=== PATIENT | female | born 1955 | race Caucasian/White ===

== ENCOUNTER 2018-10-23 14:45 | Inpatient (IN) | payer MEDICARE ==
[2018-10-23 15:50] LABS: HEMATOCRIT 43.7 % (41.0-60); HEMOGLOBIN 14.8 gm/dL (12-16); MEAN CELL VOLUME 89.1 fl (81-100); MEAN CORPUSCULAR HEMOGLOBIN 30.2 pg (27.0-31.0); MEAN CORPUSCULAR HGB CONC 33.9 pg (28.0-36.0); MEAN PLATELET VOLUME 7.7 fl; PLATELET COUNT 219 Th/cmm (150-400); RED BLOOD COUNT 4.91 Mil/cmm (3.80-5.10); RED CELL DISTRIBUTION WIDTH 12.5 % (11.5-20.0)
--- NOTE | 2018-10-23 15:58 | ED Physician Chart ---
ED Chief Complaint/HPI - Patient Information Date Seen:: 10/23/18 Time Seen:: 15:20 Chief Complaint:: failure to thrive History of Present Illness:: THIS IS A 63 YO FEMALE FROM A BOARD AND CARE FOR AN EVALUATION AND TREATMENT FOR HER CONDITION. SHE HEART DISEASE, HYPERTENSION AND NO DIABETES. SHE ADMITS TO HAVING MENTAL PROBLEMS. THIS PATIENT WAS JUST RELEASED FROM [facility] THIS AM. Allergies:: Allergies Allergy/AdvReac Type Severity Reaction Status Date / Time No Known Allergies Allergy Verified 10/23/18 15:16 Vitals:: Vital Signs - 8 hr 10/23/18 15:16 Temp 98.9 F HR 68 RR 18 BP 135/77 O2 Sat % 98 Historian:: Patient, Medical Records Review:: Nurse's Note Reviewed, Transfer documents Reviewed ED Review of Systems - Review of Systems General/Constitutional: No fever, No chills, No weight loss, Weakness, No diaphoresis, No edema, No loss of appetite Skin: No skin lesions, No rash, No bruising Head: No headache, No light-headedness Eyes: No loss of vision, No pain, No diplopia ENT: No earache, No nasal drainage, No sore throat, No tinnitus Neck: No neck pain, No swelling, No thyromegaly, No stiffness, No mass noted Cardio Vascular: No chest pain, No palpitations, No PND, No orthopnea, No edema Pulmonary: No SOB, No cough, No sputum, No wheezing GI: No nausea, No vomiting, No diarrhea, No pain, No melena, No hematochezia, No constipation, No hematemesis G/U: No dysuria, No frequency, No hematuria Musculoskeletal: No bone or joint pain, No back pain, No muscle pain Endocrine: No polyuria, No polydipsia Psychiatric: Prior psych history, No depression, No anxiety, No suicidal ideation Hematopoietic: No bruising, No lymphadenopathy Allergic/Immuno: No urticaria, No angioedema Neurological: No syncope, No focal symptoms, No weakness, No paresthesia, No headache, No seizure, No dizziness, No confusion, No vertigo ED Past Medical History - Past Medical History Obtainable: Yes Past Medical History: Dementia Family History: None Social History: Smoker, No Alcohol, Illicit Drug Use, Care Facility Surgical History: None Psychiatricy History: Schizophrenia Medication: Reviewed Family Medical History - Family Member Mother History Unknown: Yes ED Physical Exam - Physical Examination General/Constitutional: Awake, Well-developed, well-nourished, Alert, No distress, GCS 15, Non-toxic appearing, Ambulatory Head: Atraumatic Eyes: Lids, conjuctiva normal, PERRL, EOMI Skin: Nl inspection, No rash, No skin lesions, No ecchymosis, Well hydrated, No lymphadenopathy ENMT: External ears, nose nl, Nasal exam nl, Lips, teeth, gums nl Neck: Nontender, Full ROM w/o pain, No JVD, No nuchal rigidity, No bruit, No mass, No stridor Respiratory: Nl effort/Exclusion, Clear to Auscultation, No Wheeze/Rhonchi/Rales Cardio Vascular: RRR, No murmur, gallop, rubs, NL S1 S2 GI: No tenderness/rebounding/guarding, No organomegaly, No hernia, Normal BS's, Nondistended, No mass/bruits, No McBurney tenderness : No CVA tenderness Extremities: No tenderness or effusion, Full ROM, normal strength in all extremities, No edema, Normal digits & nails Neuro/Psych: Alert/oriented, DTR's symmetric, Normal sensory exam, Normal motor strength, Judgement/insight normal (POOR INSIGHT, ), Mood normal, Normal gait, No focal deficits Misc: Normal back, No paraspinal tenderness ED Labs/Radiology/EKG Results - EKG Interpretations EKG Time:: 15:41 Rate & Rhythm: RATE=69 [place]: LEFT AXIS ED Assessment - Assessment General Assessment: LACTIC ACICDOSIS ED Septic Shock - . Is Septic Shock (SBP<90, OR Lactate>4 mmol\L) present?: No - <6hrs of presentation: Vital Signs: Vital Signs - 8 hr 10/23/18 15:16 Temp 98.9 F HR 68 RR 18 BP 135/77 O2 Sat % 98 ED Reassessment (Disposition) - Reassessment Reassessment Condition:: Unchanged - Diagnosis Diagnosis:: ELEVATED WHITE COUNT CONFUSION - Patient Disposition Discharge/Transfer:: Acute Care w/in this hosp Admitting Medical Physician:: Trey Ivy
[2018-10-23 16:00] LABS: INR 1.06 (0.5-1.4)
[2018-10-23 16:03] LABS: ALBUMIN 4.4 gm/dL (3.7-5.3); ALKALINE PHOSPHATASE 68 U/L (34-104); ANION GAP 15.4 (7.0-16.0); BILIRUBIN,TOTAL 0.5 mg/dL (0.3-1.0); BUN - UREA NITROGEN 10 mg/dL (7-25); CALCIUM SERUM 9.9 mg/dL (8.6-10.3); CARBON DIOXIDE 24.4 mEq/L (21.0-31.0); CHLORIDE 104 mEq/L (98-107); CREATININE - SERUM 0.8 mg/dL (0.6-1.2); GFR AFRICAN-AMERICAN > 60.0 ml/min (>90); GFR NON AFRICAN-AMERICAN > 60.0 ml/min; GLUCOSE 110 mg/dL (70-105); POTASSIUM SERUM 3.8 mEq/L (3.5-5.1); SGOT 14 U/L (13-39); SGPT/ALT 7 U/L (7-52); SODIUM SERUM 140 mEq/L (136-145); TOTAL PROTEIN,SERUM 6.6 gm/dL (6.0-8.3)
[2018-10-23 16:14] LABS: BAND NEUTROPHILE 1 % (0-10); NEUTROPHILS 51 % (40-80)
[2018-10-23 16:15] LABS: LYMPHOCYTE 46 % (20-50); MONOCYTE 2 % (2-10)
[2018-10-23 16:24] LABS: SALICYLATES (ASPIRIN) < 25.0 mg/L (30.0-100.0)
--- NOTE | 2018-10-23 19:24 | Consultation ---
Consult Note - Consult Note Service Date: 10/23/18 Referring Physician: Trey Ivy Consult Note: PHYSICIAN Consultation Note: Date of Admission: 10/23/18 Purpose of Consultation: Leukocytosis Chief Complaint: Leukocytosis and confusion. History of Present Illness: 63 Y/F residing at a [facility] facility with PMH of HTN, CHF discharged from [facility] this am, broguht to the ED for evaluation of leukocytosis. On initial evaluation, her temperature was 98.9 F and WBC Count was 17,000. Id consult was called and she was started on ceftriaxone. CXR and UA is negative so far. Past Medical History: HTN CHF. Allergies Allergy/AdvReac Type Severity Reaction Status Date / Time No Known Allergies Allergy Verified 10/23/18 15:16 Vital Signs Temp 98.9 F 10/23/18 15:16 Pulse 68 10/23/18 15:16 Resp 18 10/23/18 15:16 BP 135/77 10/23/18 15:16 Pulse Ox 98 10/23/18 15:16 Intake & Output 10/23/18 10/23/18 10/24/18 06:59 18:59 06:59 Weight (lbs) 54.885 kg Other: Weight Source Patient stated Laboratory Results - last 24 hr 10/23/18 10/23/18 10/23/18 15:40 15:40 15:40 WBC 17.0 H RBC 4.91 Hgb 14.8 Hct 43.7 MCV 89.1 MCH 30.2 MCHC Differential 33.9 RDW 12.5 Plt Count 219 MPV 7.7 Add Manual Diff YES Band Neutrophils % 1 Neutrophils (Manual) 51 Lymphocytes 46 Monocytes 2 PT 11.0 INR 1.06 Sodium 140 Potassium 3.8 Chloride 104 Carbon Dioxide 24.4 Anion Gap 15.4 BUN 10 Creatinine 0.8 Est GFR ( Amer) > 60.0 Est GFR (Non-Af Amer) > 60.0 BUN/Creatinine Ratio 12.5 Glucose 110 H Whole Bld Lactic Acid Calcium 9.9 Total Bilirubin 0.5 AST 14 ALT 7 Alkaline Phosphatase 68 Troponin I Total Protein 6.6 Albumin 4.4 Globulin 2.2 Albumin/Globulin Ratio 2.0 H TSH Salicylates Acetaminophen 10/23/18 10/23/18 10/23/18 15:40 15:40 15:40 WBC RBC Hgb Hct MCV MCH MCHC Differential RDW Plt Count MPV Add Manual Diff Band Neutrophils % Neutrophils (Manual) Lymphocytes Monocytes PT INR Sodium Potassium Chloride Carbon Dioxide Anion Gap BUN Creatinine Est GFR ( Amer) Est GFR (Non-Af Amer) BUN/Creatinine Ratio Glucose Whole Bld Lactic Acid 0.80 Calcium Total Bilirubin AST ALT Alkaline Phosphatase Troponin I 0.01 Total Protein Albumin Globulin Albumin/Globulin Ratio TSH 1.62 Salicylates Acetaminophen 10/23/18 15:40 WBC RBC Hgb Hct MCV MCH MCHC Differential RDW Plt Count MPV Add Manual Diff Band Neutrophils % Neutrophils (Manual) Lymphocytes Monocytes PT INR Sodium Potassium Chloride Carbon Dioxide Anion Gap BUN Creatinine Est GFR ( Amer) Est GFR (Non-Af Amer) BUN/Creatinine Ratio Glucose Whole Bld Lactic Acid Calcium Total Bilirubin AST ALT Alkaline Phosphatase Troponin I Total Protein Albumin Globulin Albumin/Globulin Ratio TSH Salicylates < 25.0 L Acetaminophen 10.0 Home Medication Medication Instructions Recorded Type Benztropine [Cogentin*] 0.5 mg PO HS 10/23/18 History Lorazepam [Ativan] 0.5 mg PO TID PRN 10/23/18 History OLANZapine [ZyPREXA] 20 mg PO DAILY 10/23/18 History Trazodone HCl 50 mg PO TID 10/23/18 History Zolpidem Tartrate [Ambien] 10 mg PO HS PRN 10/23/18 History Review of Systems: A 12 point ROS was reviewed with the pertinent positive and negatives noted in the HPI. Social History Smoking Status Former smoker Physical Exam: General: Comfortable, not in distress. HEENT: HEAD: NC NT. Oral Cavity moist, pink tongue, Pupil PERRLA. EOMI Neck: Supple, no JVD, no carotid bruit. Cardio: S1 and S2 WNL. Respiratory: CTAP Abdominal: Soft NT ND BS+ Genital/Urinary: Extremities: NCCE. Neurological: AAOx3. Assessment: 1. Leukocytosis. 2. HTN. 3. Confusion. Plan: Continue Rocephin. Monitor . sepsis w/u. Thank you, Dr Ivy for involving me in taking care of this patient. Signed, Sandeep Dugan M.D. [id number]
[2018-10-24 05:32] LABS: HEMATOCRIT 41.2 % (41.0-60); MEAN CELL VOLUME 89.1 fl (81-100); MEAN CORPUSCULAR HEMOGLOBIN 30.3 pg (27.0-31.0); MEAN PLATELET VOLUME 7.9 fl; PLATELET COUNT 204 Th/cmm (150-400); RED BLOOD COUNT 4.62 Mil/cmm (3.80-5.10); RED CELL DISTRIBUTION WIDTH 12.7 % (11.5-20.0); WHITE BLOOD COUNT 14.2 Th/cmm (4.8-10.8)
[2018-10-24 05:53] LABS: CHOLESTEROL 165 mg/dL (<200); HDL -HIGH DENSITY LIPOPROTEIN 60 mg/dL (23-92); TRIGLYCERIDES 43 mg/dL (<150)
[2018-10-24 06:01] LABS: BAND NEUTROPHILE 0 % (0-10); BASOPHIL 0 % (0-3); EOSINOPHIL 0 % (0-5); LYMPHOCYTE 58 % (20-50); NEUTROPHILS 35 % (40-80)
[2018-10-24 06:02] LABS: MONOCYTE 7 % (2-10)
--- NOTE | 2018-10-24 09:40 | Diagnostic Imaging Report ---
Portable chest x-ray Time: 1535 HISTORY: Cough Allowing for portable technique the heart size is normal. No focal pulmonary parenchymal processes. No hilar or mediastinal abnormalities. Impression: No acute abnormalities.
[2018-10-24 11:12] LABS: URINE SOURCE RANDOM
[2018-10-24 11:16] LABS: URINE BILIRUBIN NEGATIVE (NEGATIVE); URINE BLOOD NEGATIVE (NEGATIVE); URINE GLUCOSE (UA) NEGATIVE (NEGATIVE); URINE KETONE TRACE mg/dL (NEGATIVE); URINE LEUKOCYTE ESTERASE NEGATIVE (NEGATIVE); URINE NITRATE NEGATIVE (NEGATIVE); URINE PROTEIN NEGATIVE (NEGATIVE); URINE UROBILINOGEN 0.2 E.U./dL (0.2 - 1.0)
[2018-10-24 11:18] LABS: URINE CLARITY CLEAR (CLEAR); URINE COLOR YELLOW; URINE MICROSCOPIC INDICATED? NO
[2018-10-24 11:28] LABS: AMPHETAMINE URINE NEGATIVE (NEGATIVE); BARBITURATES URINE NEGATIVE (NEGATIVE); BENZODIAZEPINES QUAL URINE POSITIVE (NEGATIVE); CANNABINOID THC NEGATIVE (NEGATIVE); COCAINE METABOLITE QUAL URINE NEGATIVE (NEGATIVE); METHADONE URINE NEGATIVE (NEGATIVE); METHAMPHETAMINES QUAL URINE NEGATIVE (NEGATIVE); OPIATES (MORPHINE) QUAL. URINE NEGATIVE (NEGATIVE); PHENCYCLIDINE (PCP) URINE NEGATIVE (NEGATIVE); TRICYCLICS (TCA) QUAL. URINE NEGATIVE (NEGATIVE)
[2018-10-24] MEDS: cefTRIAXone 1 GM in 0.9% NS 50 ML IV SCH ×2 (16:47→19:05)
[2018-10-25 10:59] LABS: % BASOPHILS 0.2 % (0.0-2.0); % EOSINOPHILS 0.2 % (0.0-5.0); % LYMPHOCYTES 51.3 % (20.0-50.0); % MONOCYTES 5.7 % (2.0-10.0); % NEUTROPHILS 42.6 % (40.0-80.0); HEMATOCRIT 42.7 % (41.0-60); HEMOGLOBIN 14.3 gm/dL (12-16); LYMPHOCYTE ABSOLUTE 7.6 Th/cmm (1.5-3.0); MEAN CELL VOLUME 89.6 fl (81-100); MEAN CORPUSCULAR HGB CONC 33.4 pg (28.0-36.0); MEAN PLATELET VOLUME 7.5 fl; MONOCYTE ABSOLUTE 0.8 Th/cmm (0.3-1.0); NEUTROPHILE ABSOLUTE 6.2 Th/cmm (1.8-8.0); PLATELET COUNT 213 Th/cmm (150-400); RED BLOOD COUNT 4.77 Mil/cmm (3.80-5.10); RED CELL DISTRIBUTION WIDTH 12.4 % (11.5-20.0); WHITE BLOOD COUNT 14.6 Th/cmm (4.8-10.8)
[2018-10-25 11:10] LABS: ALB/GLOB RATIO 2.1 (1.0-1.8); ALBUMIN 4.2 gm/dL (3.7-5.3); ALKALINE PHOSPHATASE 62 U/L (34-104); ANION GAP 11.4 (7.0-16.0); BILIRUBIN,TOTAL 0.5 mg/dL (0.3-1.0); BUN - UREA NITROGEN 13 mg/dL (7-25); CARBON DIOXIDE 28.4 mEq/L (21.0-31.0); CHLORIDE 99 mEq/L (98-107); CREATININE - SERUM 0.8 mg/dL (0.6-1.2); GFR AFRICAN-AMERICAN > 60.0 ml/min (>90); GFR NON AFRICAN-AMERICAN > 60.0 ml/min; GLUCOSE 81 mg/dL (70-105); POTASSIUM SERUM 3.8 mEq/L (3.5-5.1); SGOT 19 U/L (13-39); SGPT/ALT 10 U/L (7-52); SODIUM SERUM 135 mEq/L (136-145); TOTAL PROTEIN,SERUM 6.2 gm/dL (6.0-8.3)
[2018-10-25] MEDS: cefTRIAXone 1 GM in 0.9% NS 50 ML IV SCH (16:35)
--- NOTE | 2018-10-25 16:40 | Infectious Disease Prog Note ---
Infectious Disease Subjective - Review of Systems Service Date: 10/25/18 Events since last encounter: None. Subjective: There is no new change, no fever. Infectious Disease Objective - Results Result Diagrams: 10/25/18 10:45 10/25/18 10:45 Recent Labs: Laboratory Last Values WBC 14.6 Th/cmm (4.8-10.8) H 10/25/18 10:45 RBC 4.77 Mil/cmm (3.80-5.10) 10/25/18 10:45 Hgb 14.3 gm/dL (12-16) 10/25/18 10:45 Hct 42.7 % (41.0-60) 10/25/18 10:45 MCV 89.6 fl (81-100) 10/25/18 10:45 MCH 30.0 pg (27.0-31.0) 10/25/18 10:45 MCHC Differential 33.4 pg (28.0-36.0) 10/25/18 10:45 RDW 12.4 % (11.5-20.0) 10/25/18 10:45 Plt Count 213 Th/cmm (150-400) 10/25/18 10:45 MPV 7.5 fl 10/25/18 10:45 Add Manual Diff YES 10/24/18 04:45 Neutrophils % 42.6 % (40.0-80.0) 10/25/18 10:45 Band Neutrophils % 0 % (0-10) 10/24/18 04:45 Lymphocytes % 51.3 % (20.0-50.0) H 10/25/18 10:45 Monocytes % 5.7 % (2.0-10.0) 10/25/18 10:45 Eosinophils % 0.2 % (0.0-5.0) 10/25/18 10:45 Basophils % 0.2 % (0.0-2.0) 10/25/18 10:45 Neutrophils (Manual) 35 % (40-80) L 10/24/18 04:45 Lymphocytes 58 % (20-50) H 10/24/18 04:45 Monocytes 7 % (2-10) 10/24/18 04:45 Eosinophils 0 % (0-5) 10/24/18 04:45 Basophils 0 % (0-3) 10/24/18 04:45 PT 11.0 SECONDS (9.5-11.5) 10/23/18 15:40 INR 1.06 (0.5-1.4) 10/23/18 15:40 Sodium 135 mEq/L (136-145) L 10/25/18 10:45 Potassium 3.8 mEq/L (3.5-5.1) 10/25/18 10:45 Chloride 99 mEq/L (98-107) 10/25/18 10:45 Carbon Dioxide 28.4 mEq/L (21.0-31.0) 10/25/18 10:45 Anion Gap 11.4 (7.0-16.0) 10/25/18 10:45 BUN 13 mg/dL (7-25) 10/25/18 10:45 Creatinine 0.8 mg/dL (0.6-1.2) 10/25/18 10:45 Est GFR ( Amer) > 60.0 ml/min (>90) 10/25/18 10:45 Est GFR (Non-Af Amer) > 60.0 ml/min 10/25/18 10:45 BUN/Creatinine Ratio 16.3 10/25/18 10:45 Glucose 81 mg/dL (70-105) 10/25/18 10:45 Whole Bld Lactic Acid 0.80 mmol/L (0.60-1.99) 10/23/18 15:40 Calcium 10.0 mg/dL (8.6-10.3) 10/25/18 10:45 Total Bilirubin 0.5 mg/dL (0.3-1.0) 10/25/18 10:45 AST 19 U/L (13-39) 10/25/18 10:45 ALT 10 U/L (7-52) 10/25/18 10:45 Alkaline Phosphatase 62 U/L (34-104) 10/25/18 10:45 Troponin I 0.01 ng/mL (0.01-0.05) 10/23/18 15:40 Total Protein 6.2 gm/dL (6.0-8.3) 10/25/18 10:45 Albumin 4.2 gm/dL (3.7-5.3) 10/25/18 10:45 Globulin 2.0 gm/dL 10/25/18 10:45 Albumin/Globulin Ratio 2.1 (1.0-1.8) H 10/25/18 10:45 Triglycerides 43 mg/dL (<150) 10/24/18 04:45 Cholesterol 165 mg/dL (<200) 10/24/18 04:45 LDL Cholesterol Direct 96 mg/dL (75-193) 10/24/18 04:45 HDL Cholesterol 60 mg/dL (23-92) 10/24/18 04:45 TSH 1.62 uIU/ml (0.34-5.60) 10/23/18 15:40 Urine Source RANDOM 10/24/18 11:00 Urine Color YELLOW 10/24/18 11:00 Urine Clarity CLEAR (CLEAR) 10/24/18 11:00 Urine pH 6.0 (4.6 - 8.0) 10/24/18 11:00 Ur Specific [place] 1.025 (1.005-1.030) 10/24/18 11:00 Urine Protein NEGATIVE mg/dL (NEGATIVE) 10/24/18 11:00 Urine Glucose (UA) NEGATIVE mg/dL (NEGATIVE) 10/24/18 11:00 Urine Ketones TRACE mg/dL (NEGATIVE) 10/24/18 11:00 Urine Blood NEGATIVE (NEGATIVE) 10/24/18 11:00 Urine Nitrate NEGATIVE (NEGATIVE) 10/24/18 11:00 Urine Bilirubin NEGATIVE (NEGATIVE) 10/24/18 11:00 Urine Urobilinogen 0.2 E.U./dL (0.2 - 1.0) 10/24/18 11:00 Ur Leukocyte Esterase NEGATIVE (NEGATIVE) 10/24/18 11:00 Salicylates < 25.0 mg/L (30.0-100.0) L 10/23/18 15:40 Urine Opiates Screen NEGATIVE (NEGATIVE) 10/24/18 11:00 Urine Methadone Screen NEGATIVE (NEGATIVE) 10/24/18 11:00 Acetaminophen 10.0 ug/mL (10.0-30.0) 10/23/18 15:40 Ur Barbiturates Screen NEGATIVE (NEGATIVE) 10/24/18 11:00 Ur Tricyclics Screen NEGATIVE (NEGATIVE) 10/24/18 11:00 Ur Phencyclidine Scrn NEGATIVE (NEGATIVE) 10/24/18 11:00 Amphetamines Screen NEGATIVE (NEGATIVE) 10/24/18 11:00 U Methamphetamines Scrn NEGATIVE (NEGATIVE) 10/24/18 11:00 U Benzodiazepines Scrn POSITIVE (NEGATIVE) H 10/24/18 11:00 [place] 0.09 mmol/L (0.5-1.0) L 10/24/18 04:45 U Cocaine Metab Screen NEGATIVE (NEGATIVE) 10/24/18 11:00 U Cannabinoids Screen NEGATIVE (NEGATIVE) 10/24/18 11:00 - Physical Exam Vitals and I&O: Vital Signs Temp 97.9 F 10/25/18 16:04 Pulse 61 10/25/18 16:04 Resp 18 10/25/18 16:04 BP 107/63 10/25/18 16:04 Pulse Ox 100 10/25/18 16:04 Intake & Output 10/24/18 10/25/18 10/25/18 18:59 06:59 18:59 Intake Total 800 625 Balance 800 625 Weight (lbs) 54.885 kg 54.885 kg Intake: Oral 800 625 Other: # Voids 4 7 # Bowel Movements 1 Weight Source Bedscale Bedscale Active Medications: Current Medications Acetaminophen (Tylenol) 650 mg PO Q4H PRN PRN Reason: Pain (Moderate) Stop: 12/23/18 15:40 Last Admin: 10/25/18 08:50 Dose: 650 mg Benztropine Mesylate (Cogentin) 0.5 mg PO HS JORGITO Stop: 12/23/18 20:59 Last Admin: 10/24/18 20:45 Dose: 0.5 mg Ceftriaxone Sodium 1 gm/ (Sodium Chloride) 50 mls @ 100 mls/hr IV Q24HR JORGITO Stop: 12/23/18 15:59 Last Admin: 10/25/18 16:35 Dose: 100 mls/hr Lorazepam (Ativan) 0.5 mg PO TID PRN; Protocol PRN Reason: Anxiety Stop: 12/23/18 18:42 Last Admin: 10/25/18 03:45 Dose: 0.5 mg Olanzapine (Zyprexa) 20 mg PO DAILY JORGITO; Protocol Stop: 12/24/18 08:59 Last Admin: 10/25/18 08:50 Dose: 20 mg Trazodone HCl (Desyrel) 50 mg PO TID JORGITO; Protocol Stop: 12/23/18 20:59 Last Admin: 10/25/18 13:45 Dose: 50 mg Zolpidem Tartrate (Ambien) 10 mg PO HS PRN PRN Reason: Insomnia Stop: 12/24/18 20:59 General: no acute distress, well developed, well nourished HEENT: atraumatic, normocephalic, PERRLA, EOMI Neck: supple, no thyromegaly Cardiovascular: S1S2, regular Lungs: clear to auscultation bilaterally, clear to percussion Abdomen: soft, no tender, no distended Extremities: no cyanosis, no clubbing, no edema Neurological: awake, alert, oriented Skin: intact Infectious Disease Assmt/Plan - Assessment Assessment: 1. Leukocytosis. 2. HTN. - Plan Plan: CT A/p and Chest, as there is persistent leukocytosis.
--- NOTE | 2018-10-26 00:08 | Consultation ---
DATE OF CONSULTATION: 10/25/2018 HISTORY OF PRESENT ILLNESS: This is a 63-year-old female likely with schizophrenia, coming in from a board and care, multiple medical problems or disease, hypertension. The patient ruminative of that she will be leaving in 3 days. Denies depression, denies anxiety. States she is feeling "okay." Denies feeling any psychological distress or turmoil, sleeping "okay." PAST PSYCHIATRIC HISTORY: Hospitalizations in the past for psychiatric reasons, likely schizophrenia. FAMILY HISTORY: Noncontributory. SOCIAL HISTORY: The patient was born in [facility], not , no kids, living in a [employer] [facility]. She is a smoker. No alcohol, no drugs. MEDICATIONS: Noted. She states Zyprexa works fairly well for her. MENTAL STATUS EXAMINATION: Stated age. Fair eye contact. Speech within normal limits. Mood "okay." Affect constricted. Thought processes were ruminative. No SI, no HI. No psychosis. Insight and judgment fair. PROVISIONAL DIAGNOSIS: Schizophrenia. MEDICAL: Please see full H and P. RECOMMENDATIONS AND PLAN: Continue Zyprexa. The patient is fairly stable from a psychiatric perspective. JOB# [id number]
--- NOTE | 2018-10-26 10:10 | Diagnostic Imaging Report ---
Exam: CT examination of the abdomen HISTORY: Leukocytosis. Total DLP equals 155 CTDI equals 6.0 Findings: Multiple contiguous thin section abdomen pelvis obtained from lower thorax to lower abdomen without the administration of oral intravenous contrast material, no prior studies available comparison. The study demonstrates normal aeration of lung parenchyma the bases. The liver and spleen intact. The gallbladder is normal. The kidneys demonstrate no evidence of obstructive uropathy or nephrolithiasis. No free fluid appreciated. Bony structures are intact. IMPRESSION: Normal limited examination of the abdomen.
--- NOTE | 2018-10-26 10:12 | Diagnostic Imaging Report ---
Exam: CT examination of chest. HISTORY: Leukocytosis Total DLP equals 158 CTDI equals 4.3 Findings Multiple contiguous thin section of the chest were obtained from thoracic outlet to the upper abdomen without the demonstration contrast material. The study is limited. The study demonstrates normal appearance of right vessels of the neck. The lung parenchyma is well aerated. There is evidence for mild peribronchial infiltrate midlung. Mediastinal structures midline the heart is not enlarged. Bony thorax is intact. IMPRESSION: Mild peribronchial infiltrate right midlung.
--- NOTE | 2018-10-26 13:46 | Infectious Disease Prog Note ---
Infectious Disease Subjective - Review of Systems Service Date: 10/26/18 Subjective: There is no new change, no fever. Infectious Disease Objective - Results Result Diagrams: 10/25/18 10:45 10/25/18 10:45 Recent Labs: Laboratory Last Values WBC 14.6 Th/cmm (4.8-10.8) H 10/25/18 10:45 RBC 4.77 Mil/cmm (3.80-5.10) 10/25/18 10:45 Hgb 14.3 gm/dL (12-16) 10/25/18 10:45 Hct 42.7 % (41.0-60) 10/25/18 10:45 MCV 89.6 fl (81-100) 10/25/18 10:45 MCH 30.0 pg (27.0-31.0) 10/25/18 10:45 MCHC Differential 33.4 pg (28.0-36.0) 10/25/18 10:45 RDW 12.4 % (11.5-20.0) 10/25/18 10:45 Plt Count 213 Th/cmm (150-400) 10/25/18 10:45 MPV 7.5 fl 10/25/18 10:45 Add Manual Diff YES 10/24/18 04:45 Neutrophils % 42.6 % (40.0-80.0) 10/25/18 10:45 Band Neutrophils % 0 % (0-10) 10/24/18 04:45 Lymphocytes % 51.3 % (20.0-50.0) H 10/25/18 10:45 Monocytes % 5.7 % (2.0-10.0) 10/25/18 10:45 Eosinophils % 0.2 % (0.0-5.0) 10/25/18 10:45 Basophils % 0.2 % (0.0-2.0) 10/25/18 10:45 Neutrophils (Manual) 35 % (40-80) L 10/24/18 04:45 Lymphocytes 58 % (20-50) H 10/24/18 04:45 Monocytes 7 % (2-10) 10/24/18 04:45 Eosinophils 0 % (0-5) 10/24/18 04:45 Basophils 0 % (0-3) 10/24/18 04:45 PT 11.0 SECONDS (9.5-11.5) 10/23/18 15:40 INR 1.06 (0.5-1.4) 10/23/18 15:40 Sodium 135 mEq/L (136-145) L 10/25/18 10:45 Potassium 3.8 mEq/L (3.5-5.1) 10/25/18 10:45 Chloride 99 mEq/L (98-107) 10/25/18 10:45 Carbon Dioxide 28.4 mEq/L (21.0-31.0) 10/25/18 10:45 Anion Gap 11.4 (7.0-16.0) 10/25/18 10:45 BUN 13 mg/dL (7-25) 10/25/18 10:45 Creatinine 0.8 mg/dL (0.6-1.2) 10/25/18 10:45 Est GFR ( Amer) > 60.0 ml/min (>90) 10/25/18 10:45 Est GFR (Non-Af Amer) > 60.0 ml/min 10/25/18 10:45 BUN/Creatinine Ratio 16.3 10/25/18 10:45 Glucose 81 mg/dL (70-105) 10/25/18 10:45 Whole Bld Lactic Acid 0.80 mmol/L (0.60-1.99) 10/23/18 15:40 Calcium 10.0 mg/dL (8.6-10.3) 10/25/18 10:45 Total Bilirubin 0.5 mg/dL (0.3-1.0) 10/25/18 10:45 AST 19 U/L (13-39) 10/25/18 10:45 ALT 10 U/L (7-52) 10/25/18 10:45 Alkaline Phosphatase 62 U/L (34-104) 10/25/18 10:45 Troponin I 0.01 ng/mL (0.01-0.05) 10/23/18 15:40 Total Protein 6.2 gm/dL (6.0-8.3) 10/25/18 10:45 Albumin 4.2 gm/dL (3.7-5.3) 10/25/18 10:45 Globulin 2.0 gm/dL 10/25/18 10:45 Albumin/Globulin Ratio 2.1 (1.0-1.8) H 10/25/18 10:45 Triglycerides 43 mg/dL (<150) 10/24/18 04:45 Cholesterol 165 mg/dL (<200) 10/24/18 04:45 LDL Cholesterol Direct 96 mg/dL (75-193) 10/24/18 04:45 HDL Cholesterol 60 mg/dL (23-92) 10/24/18 04:45 TSH 1.62 uIU/ml (0.34-5.60) 10/23/18 15:40 Urine Source RANDOM 10/24/18 11:00 Urine Color YELLOW 10/24/18 11:00 Urine Clarity CLEAR (CLEAR) 10/24/18 11:00 Urine pH 6.0 (4.6 - 8.0) 10/24/18 11:00 Ur Specific [place] 1.025 (1.005-1.030) 10/24/18 11:00 Urine Protein NEGATIVE mg/dL (NEGATIVE) 10/24/18 11:00 Urine Glucose (UA) NEGATIVE mg/dL (NEGATIVE) 10/24/18 11:00 Urine Ketones TRACE mg/dL (NEGATIVE) 10/24/18 11:00 Urine Blood NEGATIVE (NEGATIVE) 10/24/18 11:00 Urine Nitrate NEGATIVE (NEGATIVE) 10/24/18 11:00 Urine Bilirubin NEGATIVE (NEGATIVE) 10/24/18 11:00 Urine Urobilinogen 0.2 E.U./dL (0.2 - 1.0) 10/24/18 11:00 Ur Leukocyte Esterase NEGATIVE (NEGATIVE) 10/24/18 11:00 Salicylates < 25.0 mg/L (30.0-100.0) L 10/23/18 15:40 Urine Opiates Screen NEGATIVE (NEGATIVE) 10/24/18 11:00 Urine Methadone Screen NEGATIVE (NEGATIVE) 10/24/18 11:00 Acetaminophen 10.0 ug/mL (10.0-30.0) 10/23/18 15:40 Ur Barbiturates Screen NEGATIVE (NEGATIVE) 10/24/18 11:00 Ur Tricyclics Screen NEGATIVE (NEGATIVE) 10/24/18 11:00 Ur Phencyclidine Scrn NEGATIVE (NEGATIVE) 10/24/18 11:00 Amphetamines Screen NEGATIVE (NEGATIVE) 10/24/18 11:00 U Methamphetamines Scrn NEGATIVE (NEGATIVE) 10/24/18 11:00 U Benzodiazepines Scrn POSITIVE (NEGATIVE) H 10/24/18 11:00 [place] 0.09 mmol/L (0.5-1.0) L 10/24/18 04:45 U Cocaine Metab Screen NEGATIVE (NEGATIVE) 10/24/18 11:00 U Cannabinoids Screen NEGATIVE (NEGATIVE) 10/24/18 11:00 - Physical Exam Vitals and I&O: Vital Signs Temp 97.9 F 10/26/18 12:15 Pulse 87 10/26/18 12:15 Resp 18 10/26/18 12:15 BP 122/72 10/26/18 12:15 Pulse Ox 95 10/26/18 12:15 Intake & Output 10/25/18 10/26/18 10/26/18 18:59 06:59 18:59 Intake Total 720 Balance 720 Weight (lbs) 54.885 kg Intake: Oral 720 Other: # Voids 5 # Bowel Movements 1 Weight Source Bedscale Active Medications: Current Medications Acetaminophen (Tylenol) 650 mg PO Q4H PRN PRN Reason: Pain (Moderate) Stop: 12/23/18 15:40 Last Admin: 10/26/18 10:39 Dose: 650 mg Benztropine Mesylate (Cogentin) 0.5 mg PO HS JORGITO Stop: 12/23/18 20:59 Last Admin: 10/25/18 21:58 Dose: 0.5 mg Ceftriaxone Sodium 1 gm/ (Sodium Chloride) 50 mls @ 100 mls/hr IV Q24HR JORGITO Stop: 12/23/18 15:59 Last Admin: 10/25/18 16:35 Dose: 100 mls/hr Lorazepam (Ativan) 0.5 mg PO TID PRN; Protocol PRN Reason: Anxiety Stop: 12/23/18 18:42 Last Admin: 10/25/18 03:45 Dose: 0.5 mg Olanzapine (Zyprexa) 20 mg PO DAILY JORGITO; Protocol Stop: 12/24/18 08:59 Last Admin: 10/26/18 09:02 Dose: 20 mg Trazodone HCl (Desyrel) 50 mg PO TID JORGITO; Protocol Stop: 12/23/18 20:59 Last Admin: 10/26/18 09:02 Dose: 50 mg Zolpidem Tartrate (Ambien) 10 mg PO HS PRN PRN Reason: Insomnia Stop: 12/24/18 20:59 General: no acute distress, well developed, well nourished HEENT: atraumatic, normocephalic, PERRLA, EOMI Neck: supple, no thyromegaly Cardiovascular: S1S2, regular Lungs: clear to auscultation bilaterally, clear to percussion Abdomen: soft, no tender, no distended, no mass Extremities: no cyanosis, no clubbing, no edema Neurological: awake, alert, oriented Skin: intact Infectious Disease Assmt/Plan - Assessment Assessment: 1. Leukocytosis. 2. Bronchitits and early pneumonia. 3. psychosis. 4. HTN. - Plan Plan: change antibotics to levaquin.
--- NOTE | 2018-10-26 18:56 | General Progress Note ---
Objective - Results Result Diagrams: 10/25/18 10:45 10/25/18 10:45 Recent Labs: Laboratory Last Values WBC 14.6 Th/cmm (4.8-10.8) H 10/25/18 10:45 RBC 4.77 Mil/cmm (3.80-5.10) 10/25/18 10:45 Hgb 14.3 gm/dL (12-16) 10/25/18 10:45 Hct 42.7 % (41.0-60) 10/25/18 10:45 MCV 89.6 fl (81-100) 10/25/18 10:45 MCH 30.0 pg (27.0-31.0) 10/25/18 10:45 MCHC Differential 33.4 pg (28.0-36.0) 10/25/18 10:45 RDW 12.4 % (11.5-20.0) 10/25/18 10:45 Plt Count 213 Th/cmm (150-400) 10/25/18 10:45 MPV 7.5 fl 10/25/18 10:45 Add Manual Diff YES 10/24/18 04:45 Neutrophils % 42.6 % (40.0-80.0) 10/25/18 10:45 Band Neutrophils % 0 % (0-10) 10/24/18 04:45 Lymphocytes % 51.3 % (20.0-50.0) H 10/25/18 10:45 Monocytes % 5.7 % (2.0-10.0) 10/25/18 10:45 Eosinophils % 0.2 % (0.0-5.0) 10/25/18 10:45 Basophils % 0.2 % (0.0-2.0) 10/25/18 10:45 Neutrophils (Manual) 35 % (40-80) L 10/24/18 04:45 Lymphocytes 58 % (20-50) H 10/24/18 04:45 Monocytes 7 % (2-10) 10/24/18 04:45 Eosinophils 0 % (0-5) 10/24/18 04:45 Basophils 0 % (0-3) 10/24/18 04:45 PT 11.0 SECONDS (9.5-11.5) 10/23/18 15:40 INR 1.06 (0.5-1.4) 10/23/18 15:40 Sodium 135 mEq/L (136-145) L 10/25/18 10:45 Potassium 3.8 mEq/L (3.5-5.1) 10/25/18 10:45 Chloride 99 mEq/L (98-107) 10/25/18 10:45 Carbon Dioxide 28.4 mEq/L (21.0-31.0) 10/25/18 10:45 Anion Gap 11.4 (7.0-16.0) 10/25/18 10:45 BUN 13 mg/dL (7-25) 10/25/18 10:45 Creatinine 0.8 mg/dL (0.6-1.2) 10/25/18 10:45 Est GFR ( Amer) > 60.0 ml/min (>90) 10/25/18 10:45 Est GFR (Non-Af Amer) > 60.0 ml/min 10/25/18 10:45 BUN/Creatinine Ratio 16.3 10/25/18 10:45 Glucose 81 mg/dL (70-105) 10/25/18 10:45 Whole Bld Lactic Acid 0.80 mmol/L (0.60-1.99) 10/23/18 15:40 Calcium 10.0 mg/dL (8.6-10.3) 10/25/18 10:45 Total Bilirubin 0.5 mg/dL (0.3-1.0) 10/25/18 10:45 AST 19 U/L (13-39) 10/25/18 10:45 ALT 10 U/L (7-52) 10/25/18 10:45 Alkaline Phosphatase 62 U/L (34-104) 10/25/18 10:45 Troponin I 0.01 ng/mL (0.01-0.05) 10/23/18 15:40 Total Protein 6.2 gm/dL (6.0-8.3) 10/25/18 10:45 Albumin 4.2 gm/dL (3.7-5.3) 10/25/18 10:45 Globulin 2.0 gm/dL 10/25/18 10:45 Albumin/Globulin Ratio 2.1 (1.0-1.8) H 10/25/18 10:45 Triglycerides 43 mg/dL (<150) 10/24/18 04:45 Cholesterol 165 mg/dL (<200) 10/24/18 04:45 LDL Cholesterol Direct 96 mg/dL (75-193) 10/24/18 04:45 HDL Cholesterol 60 mg/dL (23-92) 10/24/18 04:45 TSH 1.62 uIU/ml (0.34-5.60) 10/23/18 15:40 Urine Source RANDOM 10/24/18 11:00 Urine Color YELLOW 10/24/18 11:00 Urine Clarity CLEAR (CLEAR) 10/24/18 11:00 Urine pH 6.0 (4.6 - 8.0) 10/24/18 11:00 Ur Specific [place] 1.025 (1.005-1.030) 10/24/18 11:00 Urine Protein NEGATIVE mg/dL (NEGATIVE) 10/24/18 11:00 Urine Glucose (UA) NEGATIVE mg/dL (NEGATIVE) 10/24/18 11:00 Urine Ketones TRACE mg/dL (NEGATIVE) 10/24/18 11:00 Urine Blood NEGATIVE (NEGATIVE) 10/24/18 11:00 Urine Nitrate NEGATIVE (NEGATIVE) 10/24/18 11:00 Urine Bilirubin NEGATIVE (NEGATIVE) 10/24/18 11:00 Urine Urobilinogen 0.2 E.U./dL (0.2 - 1.0) 10/24/18 11:00 Ur Leukocyte Esterase NEGATIVE (NEGATIVE) 10/24/18 11:00 Salicylates < 25.0 mg/L (30.0-100.0) L 10/23/18 15:40 Urine Opiates Screen NEGATIVE (NEGATIVE) 10/24/18 11:00 Urine Methadone Screen NEGATIVE (NEGATIVE) 10/24/18 11:00 Acetaminophen 10.0 ug/mL (10.0-30.0) 10/23/18 15:40 Ur Barbiturates Screen NEGATIVE (NEGATIVE) 10/24/18 11:00 Ur Tricyclics Screen NEGATIVE (NEGATIVE) 10/24/18 11:00 Ur Phencyclidine Scrn NEGATIVE (NEGATIVE) 10/24/18 11:00 Amphetamines Screen NEGATIVE (NEGATIVE) 10/24/18 11:00 U Methamphetamines Scrn NEGATIVE (NEGATIVE) 10/24/18 11:00 U Benzodiazepines Scrn POSITIVE (NEGATIVE) H 10/24/18 11:00 [place] 0.09 mmol/L (0.5-1.0) L 10/24/18 04:45 U Cocaine Metab Screen NEGATIVE (NEGATIVE) 10/24/18 11:00 U Cannabinoids Screen NEGATIVE (NEGATIVE) 10/24/18 11:00 - Physical Exam Vitals and I&O: Vital Signs Temp 98.8 F 10/26/18 16:27 Pulse 92 10/26/18 16:27 Resp 17 10/26/18 16:27 BP 117/68 10/26/18 16:27 Pulse Ox 96 10/26/18 16:27 Intake & Output 10/25/18 10/26/18 10/26/18 18:59 06:59 18:59 Intake Total 720 Balance 720 Weight (lbs) 54.885 kg Intake: Oral 720 Other: # Voids 5 # Bowel Movements 1 Weight Source Bedscale Active Medications: Current Medications Acetaminophen (Tylenol) 650 mg PO Q4H PRN PRN Reason: Pain (Moderate) Stop: 12/23/18 15:40 Last Admin: 10/26/18 14:47 Dose: 650 mg Benztropine Mesylate (Cogentin) 0.5 mg PO HS JORGITO Stop: 12/23/18 20:59 Last Admin: 10/25/18 21:58 Dose: 0.5 mg Lorazepam (Ativan) 0.5 mg PO TID PRN; Protocol PRN Reason: Anxiety Stop: 12/23/18 18:42 Last Admin: 10/25/18 03:45 Dose: 0.5 mg Olanzapine (Zyprexa) 20 mg PO DAILY JORGITO; Protocol Stop: 12/24/18 08:59 Last Admin: 10/26/18 09:02 Dose: 20 mg Trazodone HCl (Desyrel) 50 mg PO TID JORGITO; Protocol Stop: 12/23/18 20:59 Last Admin: 10/26/18 14:09 Dose: 50 mg Zolpidem Tartrate (Ambien) 10 mg PO HS PRN PRN Reason: Insomnia Stop: 12/24/18 20:59
[2018-10-27 09:36] LABS: ANION GAP 14.4 (7.0-16.0); BUN - UREA NITROGEN 16 mg/dL (7-25); CARBON DIOXIDE 25.7 mEq/L (21.0-31.0); CHLORIDE 102 mEq/L (98-107); CREATININE - SERUM 1.1 mg/dL (0.6-1.2); GFR AFRICAN-AMERICAN > 60.0 ml/min (>90); GFR NON AFRICAN-AMERICAN 53.3 ml/min; GLUCOSE 128 mg/dL (70-105); POTASSIUM SERUM 4.1 mEq/L (3.5-5.1); SODIUM SERUM 138 mEq/L (136-145)
[2018-10-27 13:52] LABS: HEMATOCRIT 42.2 % (41.0-60); HEMOGLOBIN 14.1 gm/dL (12-16); MEAN CELL VOLUME 91.4 fl (81-100); MEAN CORPUSCULAR HEMOGLOBIN 30.5 pg (27.0-31.0); MEAN CORPUSCULAR HGB CONC 33.3 pg (28.0-36.0); RED BLOOD COUNT 4.61 Mil/cmm (3.80-5.10); RED CELL DISTRIBUTION WIDTH 12.8 % (11.5-20.0); WHITE BLOOD COUNT 13.7 Th/cmm (4.8-10.8)
[2018-10-27 13:53] LABS: % BASOPHILS 1.1 % (0.0-2.0); % EOSINOPHILS 0.6 % (0.0-5.0); % LYMPHOCYTES 45.6 % (20.0-50.0); % MONOCYTES 6.7 % (2.0-10.0); BASOPHILE ABSOLUTE 0.2 Th/cumm (0-0.2); EOSINOPHILE ABSOLUTE 0.1 Th/cmm (0.1-0.4); LYMPHOCYTE ABSOLUTE 6.2 Th/cmm (1.5-3.0); MEAN PLATELET VOLUME 9.5 fl; MONOCYTE ABSOLUTE 0.9 Th/cmm (0.3-1.0); NEUTROPHILE ABSOLUTE 6.3 Th/cmm (1.8-8.0); PLATELET COUNT 215 Th/cmm (150-400)
--- NOTE | 2018-10-27 15:28 | General Progress Note ---
Subjective - Review of Systems Events since last encounter: pt. continues to be confused, pacing back and forth Objective - Results Result Diagrams: 10/27/18 09:05 10/27/18 09:05 Recent Labs: Laboratory Last Values WBC 13.7 Th/cmm (4.8-10.8) H 10/27/18 09:05 RBC 4.61 Mil/cmm (3.80-5.10) 10/27/18 09:05 Hgb 14.1 gm/dL (12-16) 10/27/18 09:05 Hct 42.2 % (41.0-60) 10/27/18 09:05 MCV 91.4 fl (81-100) 10/27/18 09:05 MCH 30.5 pg (27.0-31.0) 10/27/18 09:05 MCHC Differential 33.3 pg (28.0-36.0) 10/27/18 09:05 RDW 12.8 % (11.5-20.0) 10/27/18 09:05 Plt Count 215 Th/cmm (150-400) 10/27/18 09:05 MPV 9.5 fl 10/27/18 09:05 Add Manual Diff YES 10/24/18 04:45 Neutrophils % 46.0 % (40.0-80.0) 10/27/18 09:05 Band Neutrophils % 0 % (0-10) 10/24/18 04:45 Lymphocytes % 45.6 % (20.0-50.0) 10/27/18 09:05 Monocytes % 6.7 % (2.0-10.0) 10/27/18 09:05 Eosinophils % 0.6 % (0.0-5.0) 10/27/18 09:05 Basophils % 1.1 % (0.0-2.0) 10/27/18 09:05 Neutrophils (Manual) 35 % (40-80) L 10/24/18 04:45 Lymphocytes 58 % (20-50) H 10/24/18 04:45 Monocytes 7 % (2-10) 10/24/18 04:45 Eosinophils 0 % (0-5) 10/24/18 04:45 Basophils 0 % (0-3) 10/24/18 04:45 PT 11.0 SECONDS (9.5-11.5) 10/23/18 15:40 INR 1.06 (0.5-1.4) 10/23/18 15:40 Sodium 138 mEq/L (136-145) 10/27/18 09:05 Potassium 4.1 mEq/L (3.5-5.1) 10/27/18 09:05 Chloride 102 mEq/L (98-107) 10/27/18 09:05 Carbon Dioxide 25.7 mEq/L (21.0-31.0) 10/27/18 09:05 Anion Gap 14.4 (7.0-16.0) 10/27/18 09:05 BUN 16 mg/dL (7-25) 10/27/18 09:05 Creatinine 1.1 mg/dL (0.6-1.2) 10/27/18 09:05 Est GFR ( Amer) > 60.0 ml/min (>90) 10/27/18 09:05 Est GFR (Non-Af Amer) 53.3 ml/min 10/27/18 09:05 BUN/Creatinine Ratio 14.5 10/27/18 09:05 Glucose 128 mg/dL (70-105) H 10/27/18 09:05 Whole Bld Lactic Acid 0.80 mmol/L (0.60-1.99) 10/23/18 15:40 Calcium 10.0 mg/dL (8.6-10.3) 10/27/18 09:05 Total Bilirubin 0.5 mg/dL (0.3-1.0) 10/25/18 10:45 AST 19 U/L (13-39) 10/25/18 10:45 ALT 10 U/L (7-52) 10/25/18 10:45 Alkaline Phosphatase 62 U/L (34-104) 10/25/18 10:45 Troponin I 0.01 ng/mL (0.01-0.05) 10/23/18 15:40 Total Protein 6.2 gm/dL (6.0-8.3) 10/25/18 10:45 Albumin 4.2 gm/dL (3.7-5.3) 10/25/18 10:45 Globulin 2.0 gm/dL 10/25/18 10:45 Albumin/Globulin Ratio 2.1 (1.0-1.8) H 10/25/18 10:45 Triglycerides 43 mg/dL (<150) 10/24/18 04:45 Cholesterol 165 mg/dL (<200) 10/24/18 04:45 LDL Cholesterol Direct 96 mg/dL (75-193) 10/24/18 04:45 HDL Cholesterol 60 mg/dL (23-92) 10/24/18 04:45 TSH 1.62 uIU/ml (0.34-5.60) 10/23/18 15:40 Urine Source RANDOM 10/24/18 11:00 Urine Color YELLOW 10/24/18 11:00 Urine Clarity CLEAR (CLEAR) 10/24/18 11:00 Urine pH 6.0 (4.6 - 8.0) 10/24/18 11:00 Ur Specific [place] 1.025 (1.005-1.030) 10/24/18 11:00 Urine Protein NEGATIVE mg/dL (NEGATIVE) 10/24/18 11:00 Urine Glucose (UA) NEGATIVE mg/dL (NEGATIVE) 10/24/18 11:00 Urine Ketones TRACE mg/dL (NEGATIVE) 10/24/18 11:00 Urine Blood NEGATIVE (NEGATIVE) 10/24/18 11:00 Urine Nitrate NEGATIVE (NEGATIVE) 10/24/18 11:00 Urine Bilirubin NEGATIVE (NEGATIVE) 10/24/18 11:00 Urine Urobilinogen 0.2 E.U./dL (0.2 - 1.0) 10/24/18 11:00 Ur Leukocyte Esterase NEGATIVE (NEGATIVE) 10/24/18 11:00 Salicylates < 25.0 mg/L (30.0-100.0) L 10/23/18 15:40 Urine Opiates Screen NEGATIVE (NEGATIVE) 10/24/18 11:00 Urine Methadone Screen NEGATIVE (NEGATIVE) 10/24/18 11:00 Acetaminophen 10.0 ug/mL (10.0-30.0) 10/23/18 15:40 Ur Barbiturates Screen NEGATIVE (NEGATIVE) 10/24/18 11:00 Ur Tricyclics Screen NEGATIVE (NEGATIVE) 10/24/18 11:00 Ur Phencyclidine Scrn NEGATIVE (NEGATIVE) 10/24/18 11:00 Amphetamines Screen NEGATIVE (NEGATIVE) 10/24/18 11:00 U Methamphetamines Scrn NEGATIVE (NEGATIVE) 10/24/18 11:00 U Benzodiazepines Scrn POSITIVE (NEGATIVE) H 10/24/18 11:00 [place] 0.09 mmol/L (0.5-1.0) L 10/24/18 04:45 U Cocaine Metab Screen NEGATIVE (NEGATIVE) 10/24/18 11:00 U Cannabinoids Screen NEGATIVE (NEGATIVE) 10/24/18 11:00 - Physical Exam Vitals and I&O: Vital Signs Temp 96.9 F 10/27/18 12:00 Pulse 70 10/27/18 12:00 Resp 18 10/27/18 12:00 BP 103/58 10/27/18 12:00 Pulse Ox 99 10/27/18 12:00 Intake & Output 10/26/18 10/27/18 10/27/18 18:59 06:59 18:59 Intake Total 1020 Balance 1020 Weight (lbs) 54.885 kg Intake: Oral 1020 Other: # Voids 3 # Bowel Movements 0 Weight Source Bedscale Active Medications: Current Medications Acetaminophen (Tylenol) 650 mg PO Q4H PRN PRN Reason: Pain (Moderate) Stop: 12/23/18 15:40 Last Admin: 10/27/18 01:50 Dose: 650 mg Benztropine Mesylate (Cogentin) 0.5 mg PO HS JORGITO Stop: 12/23/18 20:59 Last Admin: 10/26/18 22:04 Dose: 0.5 mg Lorazepam (Ativan) 0.5 mg PO TID PRN; Protocol PRN Reason: Anxiety Stop: 12/23/18 18:42 Last Admin: 10/27/18 05:32 Dose: 0.5 mg Olanzapine (Zyprexa) 20 mg PO DAILY JORGITO; Protocol Stop: 12/24/18 08:59 Last Admin: 10/27/18 08:30 Dose: 20 mg Trazodone HCl (Desyrel) 50 mg PO TID JORGITO; Protocol Stop: 12/23/18 20:59 Last Admin: 10/27/18 08:30 Dose: 50 mg Zolpidem Tartrate (Ambien) 10 mg PO HS PRN PRN Reason: Insomnia Stop: 12/24/18 20:59 General: Alert, No acute distress HEENT: Atraumatic Neck: Supple Cardiovascular: Regular rate Lungs: Clear to auscultation Abdomen: Bowel sounds Psych/Mental Status: Other (pt. confused) Assessment/Plan - Assessment Assessment: leukocytosis bronchitis & early pna psychosis HTN CHF - Plan Plan: awaiting placement d.c pt. to home
--- NOTE | 2018-10-27 19:41 | Infectious Disease Prog Note ---
Infectious Disease Subjective - Review of Systems Service Date: 10/27/18 Subjective: There is no new change, no fever. Infectious Disease Objective - Results Result Diagrams: 10/27/18 09:05 10/27/18 09:05 Recent Labs: Laboratory Last Values WBC 13.7 Th/cmm (4.8-10.8) H 10/27/18 09:05 RBC 4.61 Mil/cmm (3.80-5.10) 10/27/18 09:05 Hgb 14.1 gm/dL (12-16) 10/27/18 09:05 Hct 42.2 % (41.0-60) 10/27/18 09:05 MCV 91.4 fl (81-100) 10/27/18 09:05 MCH 30.5 pg (27.0-31.0) 10/27/18 09:05 MCHC Differential 33.3 pg (28.0-36.0) 10/27/18 09:05 RDW 12.8 % (11.5-20.0) 10/27/18 09:05 Plt Count 215 Th/cmm (150-400) 10/27/18 09:05 MPV 9.5 fl 10/27/18 09:05 Add Manual Diff YES 10/24/18 04:45 Neutrophils % 46.0 % (40.0-80.0) 10/27/18 09:05 Band Neutrophils % 0 % (0-10) 10/24/18 04:45 Lymphocytes % 45.6 % (20.0-50.0) 10/27/18 09:05 Monocytes % 6.7 % (2.0-10.0) 10/27/18 09:05 Eosinophils % 0.6 % (0.0-5.0) 10/27/18 09:05 Basophils % 1.1 % (0.0-2.0) 10/27/18 09:05 Neutrophils (Manual) 35 % (40-80) L 10/24/18 04:45 Lymphocytes 58 % (20-50) H 10/24/18 04:45 Monocytes 7 % (2-10) 10/24/18 04:45 Eosinophils 0 % (0-5) 10/24/18 04:45 Basophils 0 % (0-3) 10/24/18 04:45 PT 11.0 SECONDS (9.5-11.5) 10/23/18 15:40 INR 1.06 (0.5-1.4) 10/23/18 15:40 Sodium 138 mEq/L (136-145) 10/27/18 09:05 Potassium 4.1 mEq/L (3.5-5.1) 10/27/18 09:05 Chloride 102 mEq/L (98-107) 10/27/18 09:05 Carbon Dioxide 25.7 mEq/L (21.0-31.0) 10/27/18 09:05 Anion Gap 14.4 (7.0-16.0) 10/27/18 09:05 BUN 16 mg/dL (7-25) 10/27/18 09:05 Creatinine 1.1 mg/dL (0.6-1.2) 10/27/18 09:05 Est GFR ( Amer) > 60.0 ml/min (>90) 10/27/18 09:05 Est GFR (Non-Af Amer) 53.3 ml/min 10/27/18 09:05 BUN/Creatinine Ratio 14.5 10/27/18 09:05 Glucose 128 mg/dL (70-105) H 10/27/18 09:05 Whole Bld Lactic Acid 0.80 mmol/L (0.60-1.99) 10/23/18 15:40 Calcium 10.0 mg/dL (8.6-10.3) 10/27/18 09:05 Total Bilirubin 0.5 mg/dL (0.3-1.0) 10/25/18 10:45 AST 19 U/L (13-39) 10/25/18 10:45 ALT 10 U/L (7-52) 10/25/18 10:45 Alkaline Phosphatase 62 U/L (34-104) 10/25/18 10:45 Troponin I 0.01 ng/mL (0.01-0.05) 10/23/18 15:40 Total Protein 6.2 gm/dL (6.0-8.3) 10/25/18 10:45 Albumin 4.2 gm/dL (3.7-5.3) 10/25/18 10:45 Globulin 2.0 gm/dL 10/25/18 10:45 Albumin/Globulin Ratio 2.1 (1.0-1.8) H 10/25/18 10:45 Triglycerides 43 mg/dL (<150) 10/24/18 04:45 Cholesterol 165 mg/dL (<200) 10/24/18 04:45 LDL Cholesterol Direct 96 mg/dL (75-193) 10/24/18 04:45 HDL Cholesterol 60 mg/dL (23-92) 10/24/18 04:45 TSH 1.62 uIU/ml (0.34-5.60) 10/23/18 15:40 Urine Source RANDOM 10/24/18 11:00 Urine Color YELLOW 10/24/18 11:00 Urine Clarity CLEAR (CLEAR) 10/24/18 11:00 Urine pH 6.0 (4.6 - 8.0) 10/24/18 11:00 Ur Specific [place] 1.025 (1.005-1.030) 10/24/18 11:00 Urine Protein NEGATIVE mg/dL (NEGATIVE) 10/24/18 11:00 Urine Glucose (UA) NEGATIVE mg/dL (NEGATIVE) 10/24/18 11:00 Urine Ketones TRACE mg/dL (NEGATIVE) 10/24/18 11:00 Urine Blood NEGATIVE (NEGATIVE) 10/24/18 11:00 Urine Nitrate NEGATIVE (NEGATIVE) 10/24/18 11:00 Urine Bilirubin NEGATIVE (NEGATIVE) 10/24/18 11:00 Urine Urobilinogen 0.2 E.U./dL (0.2 - 1.0) 10/24/18 11:00 Ur Leukocyte Esterase NEGATIVE (NEGATIVE) 10/24/18 11:00 Salicylates < 25.0 mg/L (30.0-100.0) L 10/23/18 15:40 Urine Opiates Screen NEGATIVE (NEGATIVE) 10/24/18 11:00 Urine Methadone Screen NEGATIVE (NEGATIVE) 10/24/18 11:00 Acetaminophen 10.0 ug/mL (10.0-30.0) 10/23/18 15:40 Ur Barbiturates Screen NEGATIVE (NEGATIVE) 10/24/18 11:00 Ur Tricyclics Screen NEGATIVE (NEGATIVE) 10/24/18 11:00 Ur Phencyclidine Scrn NEGATIVE (NEGATIVE) 10/24/18 11:00 Amphetamines Screen NEGATIVE (NEGATIVE) 10/24/18 11:00 U Methamphetamines Scrn NEGATIVE (NEGATIVE) 10/24/18 11:00 U Benzodiazepines Scrn POSITIVE (NEGATIVE) H 10/24/18 11:00 [place] 0.09 mmol/L (0.5-1.0) L 10/24/18 04:45 U Cocaine Metab Screen NEGATIVE (NEGATIVE) 10/24/18 11:00 U Cannabinoids Screen NEGATIVE (NEGATIVE) 10/24/18 11:00 - Physical Exam Vitals and I&O: Vital Signs Temp 97.1 F 10/27/18 16:00 Pulse 74 10/27/18 16:00 Resp 18 10/27/18 16:00 BP 110/62 10/27/18 16:00 Pulse Ox 99 10/27/18 16:00 Intake & Output 10/27/18 10/27/18 10/28/18 06:59 18:59 06:59 Intake Total 1020 Balance 1020 Weight (lbs) 54.885 kg Intake: Oral 1020 Other: # Voids 3 # Bowel Movements 0 Weight Source Bedscale Active Medications: Current Medications Acetaminophen (Tylenol) 650 mg PO Q4H PRN PRN Reason: Pain (Moderate) Stop: 12/23/18 15:40 Last Admin: 10/27/18 01:50 Dose: 650 mg Benztropine Mesylate (Cogentin) 0.5 mg PO HS [place]OR[place]ITO Stop: 12/23/18 20:59 Last Admin: 10/26/18 22:04 Dose: 0.5 mg Lorazepam (Ativan) 0.5 mg PO TID PRN; Protocol PRN Reason: Anxiety Stop: 12/23/18 18:42 Last Admin: 10/27/18 05:32 Dose: 0.5 mg Olanzapine (Zyprexa) 20 mg PO DAILY JORGITO; Protocol Stop: 12/24/18 08:59 Last Admin: 10/27/18 08:30 Dose: 20 mg Trazodone HCl (Desyrel) 50 mg PO TID J[place]IT[place]; Protocol Stop: 12/23/18 20:59 Last Admin: 10/27/18 14:17 Dose: 50 mg Zolpidem Tartrate (Ambien) 10 mg PO HS PRN PRN Reason: Insomnia Stop: 12/24/18 20:59 General: no acute distress, well developed, well nourished HEENT: atraumatic, normocephalic, PERRLA, EOMI Neck: supple, no thyromegaly Cardiovascular: S1S2, regular Lungs: clear to auscultation bilaterally, clear to percussion Abdomen: soft, no tender, no distended, no mass Extremities: no cyanosis, no clubbing, no edema Neurological: awake, alert Skin: intact Infectious Disease Assmt/Plan - Assessment Assessment: 1. Leukocytosis. 2. Bronchitits and early pneumonia. 3. psychosis. 4. HTN. - Plan Plan: continue levaquin.
--- NOTE | 2018-10-28 01:58 | Consultation ---
DATE OF CONSULTATION: 10/27/2018 HISTORY OF PRESENT ILLNESS: A 63-year-old female with history of schizophrenia, noting that she feels "very good," happy with the care, feels staff is treating her well. She states she is sleeping well, eating well, hopeful, motivated, optimistic about the future, would likely need to get better. Denies any sadness, no anxiety. PAST PSYCHIATRIC HISTORY: Noted. MENTAL STATUS EXAMINATION: Stated age, fair eye contact. Speech within normal limits. Mood "fine." Affect constricted. Thought processes were linear. No SI, no HI, no intent, no plan. No overt psychotic symptoms. Insight and judgment fair. MEDICATIONS: The patient taking the medications. States that she is happy with Zyprexa. PROVISIONAL DIAGNOSIS: Schizophrenia. RECOMMENDATIONS AND PLAN: The patient is cleared from a psychiatric perspective now. No current symptoms or signs of dangerousness. [facility]# [id number]
--- NOTE | 2018-10-28 15:35 | General Progress Note ---
Objective - Results Result Diagrams: 10/27/18 09:05 10/27/18 09:05 Recent Labs: Laboratory Last Values WBC 13.7 Th/cmm (4.8-10.8) H 10/27/18 09:05 RBC 4.61 Mil/cmm (3.80-5.10) 10/27/18 09:05 Hgb 14.1 gm/dL (12-16) 10/27/18 09:05 Hct 42.2 % (41.0-60) 10/27/18 09:05 MCV 91.4 fl (81-100) 10/27/18 09:05 MCH 30.5 pg (27.0-31.0) 10/27/18 09:05 MCHC Differential 33.3 pg (28.0-36.0) 10/27/18 09:05 RDW 12.8 % (11.5-20.0) 10/27/18 09:05 Plt Count 215 Th/cmm (150-400) 10/27/18 09:05 MPV 9.5 fl 10/27/18 09:05 Add Manual Diff YES 10/24/18 04:45 Neutrophils % 46.0 % (40.0-80.0) 10/27/18 09:05 Band Neutrophils % 0 % (0-10) 10/24/18 04:45 Lymphocytes % 45.6 % (20.0-50.0) 10/27/18 09:05 Monocytes % 6.7 % (2.0-10.0) 10/27/18 09:05 Eosinophils % 0.6 % (0.0-5.0) 10/27/18 09:05 Basophils % 1.1 % (0.0-2.0) 10/27/18 09:05 Neutrophils (Manual) 35 % (40-80) L 10/24/18 04:45 Lymphocytes 58 % (20-50) H 10/24/18 04:45 Monocytes 7 % (2-10) 10/24/18 04:45 Eosinophils 0 % (0-5) 10/24/18 04:45 Basophils 0 % (0-3) 10/24/18 04:45 PT 11.0 SECONDS (9.5-11.5) 10/23/18 15:40 INR 1.06 (0.5-1.4) 10/23/18 15:40 Sodium 138 mEq/L (136-145) 10/27/18 09:05 Potassium 4.1 mEq/L (3.5-5.1) 10/27/18 09:05 Chloride 102 mEq/L (98-107) 10/27/18 09:05 Carbon Dioxide 25.7 mEq/L (21.0-31.0) 10/27/18 09:05 Anion Gap 14.4 (7.0-16.0) 10/27/18 09:05 BUN 16 mg/dL (7-25) 10/27/18 09:05 Creatinine 1.1 mg/dL (0.6-1.2) 10/27/18 09:05 Est GFR ( Amer) > 60.0 ml/min (>90) 10/27/18 09:05 Est GFR (Non-Af Amer) 53.3 ml/min 10/27/18 09:05 BUN/Creatinine Ratio 14.5 10/27/18 09:05 Glucose 128 mg/dL (70-105) H 10/27/18 09:05 Whole Bld Lactic Acid 0.80 mmol/L (0.60-1.99) 10/23/18 15:40 Calcium 10.0 mg/dL (8.6-10.3) 10/27/18 09:05 Total Bilirubin 0.5 mg/dL (0.3-1.0) 10/25/18 10:45 AST 19 U/L (13-39) 10/25/18 10:45 ALT 10 U/L (7-52) 10/25/18 10:45 Alkaline Phosphatase 62 U/L (34-104) 10/25/18 10:45 Troponin I 0.01 ng/mL (0.01-0.05) 10/23/18 15:40 Total Protein 6.2 gm/dL (6.0-8.3) 10/25/18 10:45 Albumin 4.2 gm/dL (3.7-5.3) 10/25/18 10:45 Globulin 2.0 gm/dL 10/25/18 10:45 Albumin/Globulin Ratio 2.1 (1.0-1.8) H 10/25/18 10:45 Triglycerides 43 mg/dL (<150) 10/24/18 04:45 Cholesterol 165 mg/dL (<200) 10/24/18 04:45 LDL Cholesterol Direct 96 mg/dL (75-193) 10/24/18 04:45 HDL Cholesterol 60 mg/dL (23-92) 10/24/18 04:45 TSH 1.62 uIU/ml (0.34-5.60) 10/23/18 15:40 Urine Source RANDOM 10/24/18 11:00 Urine Color YELLOW 10/24/18 11:00 Urine Clarity CLEAR (CLEAR) 10/24/18 11:00 Urine pH 6.0 (4.6 - 8.0) 10/24/18 11:00 Ur Specific [place] 1.025 (1.005-1.030) 10/24/18 11:00 Urine Protein NEGATIVE mg/dL (NEGATIVE) 10/24/18 11:00 Urine Glucose (UA) NEGATIVE mg/dL (NEGATIVE) 10/24/18 11:00 Urine Ketones TRACE mg/dL (NEGATIVE) 10/24/18 11:00 Urine Blood NEGATIVE (NEGATIVE) 10/24/18 11:00 Urine Nitrate NEGATIVE (NEGATIVE) 10/24/18 11:00 Urine Bilirubin NEGATIVE (NEGATIVE) 10/24/18 11:00 Urine Urobilinogen 0.2 E.U./dL (0.2 - 1.0) 10/24/18 11:00 Ur Leukocyte Esterase NEGATIVE (NEGATIVE) 10/24/18 11:00 Salicylates < 25.0 mg/L (30.0-100.0) L 10/23/18 15:40 Urine Opiates Screen NEGATIVE (NEGATIVE) 10/24/18 11:00 Urine Methadone Screen NEGATIVE (NEGATIVE) 10/24/18 11:00 Acetaminophen 10.0 ug/mL (10.0-30.0) 10/23/18 15:40 Ur Barbiturates Screen NEGATIVE (NEGATIVE) 10/24/18 11:00 Ur Tricyclics Screen NEGATIVE (NEGATIVE) 10/24/18 11:00 Ur Phencyclidine Scrn NEGATIVE (NEGATIVE) 10/24/18 11:00 Amphetamines Screen NEGATIVE (NEGATIVE) 10/24/18 11:00 U Methamphetamines Scrn NEGATIVE (NEGATIVE) 10/24/18 11:00 U Benzodiazepines Scrn POSITIVE (NEGATIVE) H 10/24/18 11:00 [place] 0.09 mmol/L (0.5-1.0) L 10/24/18 04:45 U Cocaine Metab Screen NEGATIVE (NEGATIVE) 10/24/18 11:00 U Cannabinoids Screen NEGATIVE (NEGATIVE) 10/24/18 11:00 - Physical Exam Vitals and I&O: Vital Signs Temp 98.1 F 10/28/18 12:00 Pulse 96 10/28/18 12:00 Resp 18 10/28/18 12:00 BP 120/73 10/28/18 12:00 Pulse Ox 98 10/28/18 12:00 Intake & Output 10/27/18 10/28/18 10/28/18 18:59 06:59 18:59 Weight (lbs) 54.885 kg Other: # Voids 1 Weight Source Bedscale Active Medications: Current Medications Acetaminophen (Tylenol) 650 mg PO Q4H PRN PRN Reason: Pain (Moderate) Stop: 12/23/18 15:40 Last Admin: 10/27/18 01:50 Dose: 650 mg Benztropine Mesylate (Cogentin) 0.5 mg PO HS JORGITO Stop: 12/23/18 20:59 Last Admin: 10/27/18 21:10 Dose: 0.5 mg Lorazepam (Ativan) 0.5 mg PO TID PRN; Protocol PRN Reason: Anxiety Stop: 12/23/18 18:42 Last Admin: 10/27/18 05:32 Dose: 0.5 mg Olanzapine (Zyprexa) 20 mg PO DAILY JORGITO; Protocol Stop: 12/24/18 08:59 Last Admin: 10/28/18 08:57 Dose: 20 mg Trazodone HCl (Desyrel) 50 mg PO TID JORGITO; Protocol Stop: 12/23/18 20:59 Last Admin: 10/28/18 13:40 Dose: 50 mg Zolpidem Tartrate (Ambien) 10 mg PO HS PRN PRN Reason: Insomnia Stop: 12/24/18 20:59 Last Admin: 10/27/18 21:10 Dose: 10 mg General: Alert, No acute distress HEENT: Atraumatic Neck: Supple Cardiovascular: Regular rate Lungs: Clear to auscultation Abdomen: Bowel sounds Psych/Mental Status: Other (pt. confused) Assessment/Plan - Assessment Assessment: leukocytosis bronchitis & early pna psychosis HTN CHF - Plan Plan: awaiting placement d.c pt. to home
--- NOTE | 2018-10-28 17:07 | History & Physical ---
ADMIT DATE: 10/23/2018 HISTORY OF PRESENT ILLNESS: The patient admitted because of increasing confusion, history of hypertension, history of congestive heart failure, and the patient found to have severe leukocytosis and sepsis and the patient was started on Rocephin, was admitted, had a consult with Infectious Disease and psych consult was ordered. PAST MEDICAL HISTORY: History of hypertension and history of chronic congestive heart failure. REVIEW OF SYSTEMS: Negative. PHYSICAL EXAMINATION: HEAD: Normal. ENT: Normal. NECK: Supple, nontender. LUNGS: Clear. CARDIOVASCULAR SYSTEM: S1, S2 heard. ABDOMEN: Soft. Bowel sounds are heard. CENTRAL NERVOUS SYSTEM: The patient is confused. DIAGNOSES: Leukocytosis, sepsis, hypotension, confusion, and psychosis was made. PLAN: The patient is being admitted. I will call Dr. Dugan as well as psych consult. I will follow the patient. JOB# [id number]
--- NOTE | 2018-10-28 23:24 | Progress Notes ---
DATE: 10/28/2018 Case was discussed with staff of the patient, reviewed records. The patient is a 63-year-old male with a history of schizophrenia. He was feeling good, happy with the care. He feel the staff is treating him well, sleeping well, eating well. His speech is normal. He has been compliant with the medication with no side effects. The patient apparently was seen by Dr. Farnsworth yesterday and medically cleared from a psychiatric point of view and I do not see anything with him today. The patient can go back to a nursing facility. The patient has been olanzapine 20 mg daily and trazodone 50 mg 3 times a day. Followup with psychiatrist when discharged. Thank you very much for allowing me to participate in the care of this most interesting gentleman. JOB# [id number]
== END 2018-10-28 18:10 | DRG 871 ==
LOC: ER 14:45 → MSI 17:44
PROVIDERS: ADMIT Internal Medicine; ATTEND Internal Medicine
DX: A41.9 Sepsis, unspecified organism (principal); J18.9 Pneumonia, unspecified organism; F20.9 Schizophrenia, unspecified; R62.7 Adult failure to thrive; F03.90 Unspecified dementia, unspecified severity, without behavioral disturbance, psychotic disturbance, mood disturbance, and anxiety; F17.210 Nicotine dependence, cigarettes, uncomplicated; I11.0 Hypertensive heart disease with heart failure; I50.9 Heart failure, unspecified; J40 Bronchitis, not specified as acute or chronic; F29 Unspecified psychosis not due to a substance or known physiological condition; Z79.899 Other long term (current) drug therapy
CPT/HCPCS: 36415-UA; 71045-TC; 71250-TC; 74150-TC; 80048-TC; 80053-TC; 80061-TC; 80178-TC; 80307; 80329-TC; 81003-TC; 83605; 84443-TC; 84484-TC; 85007-TC; 85025-TC; 85610-TC; 93005; J0696; J7040; J7051; Z7610